=== PATIENT | female | born 1940 | race Caucasian/White ===

== ENCOUNTER 2018-02-06 01:58 | Inpatient (IN) | payer MEDICARE ==
[2018-02-06] MEDS ORDERED: fentaNYL Citrate/PF 2,000 MCG in Sodium Chloride 0.9% 60 ML IV SCH ×2 (02:15→06:00)
[2018-02-06 02:29] LABS: Bilirubin Negative (Negative); Blood, Urine Negative (Negative); Clarity CLEAR (Clear); Glucose, Urine (Dipstick) Negative (Negative); Leukocyte Negative (Negative); Nitrite Negative (Negative); Protein, Urine (Dipstick) Negative (Neg-Trace); Specific Gravity, Urine 1.013 (1.002-1.036); Urobilinogen 0.2 mg/dL (0.2-1.0); pH, Urine 6.5 (5.0-9.0)
[2018-02-06 02:40] LABS: Actual Bicarbonate (HCO3a) 27.3 mEq/L (22-26); Base Excess (BEa) 3.6 mEq/L (0 (+/-) 2.5); CO2 Tension 37.4 mmHg (35.0-45.0); O2 Tension (PaO2) 72.5 mmHg (80.0-100.0); pH, Arterial 7.48 (7.35-7.45)
[2018-02-06 02:41] LABS: Analyzer IN Cardio ER; Calcium, Ionized 1.1 mmol/L (1.12-1.30); Hematocrit-ABG 32.1 % (36.0-47.0); Hemoglobin (Hb) 10.3 g/dL (12.0-16.0); Puncture Site RRA
[2018-02-06 02:45] LABS: Amphetamine Not Detected (NotDetected); Barbiturates Screen Not Detected (NotDetected); Benzodiazepine Screen Not Detected (NotDetected); Cocaine Metabolite Screen Not Detected (NotDetected); Medtox Control Line Valid? VALID (VALID); Medtox Reader # READER 1; Methadone Not Detected (NotDetected); Methamphetamine Not Detected (NotDetected); Opiate Screen Not Detected (NotDetected); Oxycodone Screen Not Detected (NotDetected); Phencyclidine (PCP) Not Detected (NotDetected); THC/Cannabinoid Screen Not Detected (NotDetected); Tricyclic Screen Not Detected (NotDetected)
[2018-02-06 02:54] LABS: #Lymphocytes 0.3 thou/uL (1.20-3.40); #Neutrophils 8.9 thou/uL (1.40-6.50); %Lymphocytes 3.1 % (21.0-51.0); %Monocytes 0.2 % (0.0-10.0); %Neutrophils 96.7 % (42.0-75.0); Hemoglobin 10.5 g/dL (12.0-16.0); Mean Corpuscular HGB CONC 33.8 g/dL (32.0-36.0); Mean Corpuscular Hemoglobin 32.8 pg (27.0-31.0); Mean Corpuscular Volume 96.8 fl (81.0-99.0); Platelet Count 185 thou/uL (130-400); RBC Distribution Width 12.8 % (11.5-14.5); Red Blood Cell (RBC) Count 3.22 mill/uL (4.20-5.40); White Blood Cell (WBC) Count 9.2 thou/uL (4.8-10.8)
[2018-02-06 03:15] LABS: ALT (SGPT) 13 U/L (8-55); AST (SGOT) 23 U/L (5-34); Albumin 3.6 g/dL (3.4-4.8); Alkaline Phosphatase 57 U/L (40-150); Anion Gap 14 mmol/L (10-20); BUN (Urea Nitrogen) 29 mg/dL (9.8-20.1); Bilirubin, Total 1.2 mg/dL (0.2-1.2); Calc. Creatinine Clearance 0 mL/min (70-130); Calcium 8.7 mg/dL (7.8-10.44); Carbon Dioxide 27 mmol/L (23-31); Chloride 101 mmol/L (98-107); Estimated GFR-MDRD 53; Globulin 2.6 g/dL (2.4-3.5); Glucose 188 mg/dL (83-110); Potassium 3.8 mmol/L (3.5-5.1); Protein, Total 6.2 g/dL (6.0-8.3); Sodium 138 mmol/L (136-145)
[2018-02-06 05:31] LABS: Troponin I 0.126 ng/mL (< 0.028)
[2018-02-06] MEDS ORDERED: Lorazepam 2 MG/ML VIAL SLOW IVP PRN (06:00)
[2018-02-06] MEDS ORDERED: Ondansetron ODT 4 MG TAB SL PRN (06:00)
[2018-02-06] MEDS ORDERED: Ondansetron HCl/PF 4 MG/2 ML Vial IVP PRN (06:00)
[2018-02-06] MEDS ORDERED: Morphine 4 MG/ML VIAL SLOW IVP PRN (06:00)
[2018-02-06] MEDS ORDERED: DISCONTINUE PREVIOUS NARCOTIC PAIN MEDICATIONS AND BENZODIAZEPINES FS SCH (06:00)
[2018-02-06] MEDS ORDERED: Propofol BOLUS 1,000 MG/100 ML VIAL IV PRN (06:00)
[2018-02-06] MEDS ORDERED: Propofol 1,000 MG/100 ML VIAL IV PRN (06:00)
[2018-02-06] MEDS ORDERED: Sodium Chloride 0.9% 1,000 ML IV SCH (06:00)
[2018-02-06] MEDS ORDERED: Acetaminophen 325 MG TAB PO PRN (06:00)
[2018-02-06] MEDS ORDERED: Fentanyl BOLUS 250 ML IVPB PRN (06:00)
[2018-02-06] MEDS ORDERED: Bisacodyl 10 MG SUPP PR PRN (06:24)
[2018-02-06 06:34] VITALS: BMI 21.8
[2018-02-06 06:59] LABS: Lactic Acid 2.6 mmol/L (0.5-2.2)
--- NOTE | 2018-02-06 07:08 | HP ---
CHIEF COMPLAINT: Pulmonary edema. HISTORY OF PRESENT ILLNESS: This is a 77-year-old female who was initially seen in the ER in [place] . It appears that at that facility, she initially presented with shortness of breath and difficulty breathing was subsequently found to have flash pulmonary edema. She was emergently intubated to prot ect her airway secondary to acute hypoxic failure from the flash pulmonary edema. It appears in that emergency department she also got 80 mg of Lasix IV x1. The patient was subsequently transferred to our facility where she was found to be hypotensive on pro pofol and was therefore in the emergency department transitioned to p.r.n., fentanyl which appears to be providing adequate sedation which appears to be sufficient. The patient is currently intubated and sedated, unable to provide any further history or review of sy stems. PAST MEDICAL HISTORY: The patient herself is unable to provide, but from ER report she carries a his tory of hyperlipidemia. Of note, she does not appear to carry any known history of CHF or primary pu lmonary issues. Unclear what prior surgeries the patient may have had as she is unable to tell and t here is no family at bedside. I do not see any in the records that accompanied her. HOME MEDICATIONS: Pending verification. ALLERGIES: CRESTOR or ROSUVASTATIN. CURRENT MEDICATIONS: None that are known to us at this time. PAST MEDICAL HISTORY: Unclear. PHYSICAL EXAMINATION: GENERAL: The patient is intubated and sedated. ET tube grossly appears to be in the right position. She has a right-sided internal jugular central venous catheter in place. HEENT: Normocephalic, atraumatic. CARDIOVASCULAR: S1, S2. Pulses 2+ bilateral upper extremities, trace bilateral pitting pedal edema. RESPIRATORY: Coarse ventilator sounds throughout. No overt wheezes, rales or rhonchi. ABDOMEN: Positive bowel sounds, soft. LABORATORY DATA AND IMAGING: WBC 9.2, hemoglobin 10.5, hematocrit 31.1, platelets 185. Initial ER, ABG here demonstrates a pH of 7.48, pCO2 is 37, pO2 of 72. Sodium 136, potassium 3.8, chloride 101, bicarbonate 27, BUN 29, creatinine 1.01, glucose 1.88, lactic acid 2.6, calcium 8.7, total bilirubin 1.2, AST 23, ALT 13, alkaline phosphatase 57. Troponin 0.126, BNP 1029.4, total protein 6.2, albumi n 3.6. UA is bland. UDS is negative. ASSESSMENT AND PLAN: A 77-year-old female presenting with flash pulmonary edema. 1. Flash pulmonary edema with acute hypoxic respiratory failure. Unclear precipitant at this point in time. So far, the only clues includes the patient's elevated BNP and a mildly elevated troponin w hich could be secondary to a demand type pattern. Maintain ventilatory support. Consult Pulmonary C ritical Care for assistance. Check echocardiogram. Trend serial troponins and maintain on telemetry . Would recommend a repeat ABG as well and checking a repeat lactic acid to ensure that it has clear ed. We will need to attempt to obtain records from the patient's family, her PCP and/or her pharmacy . DIET: N.p.o. while the patient is intubated. She has a prolonged intubation to consider initiation of tube feeds. ACTIVITY: Bed rest while the patient is on ventilator support. Deep venous thrombosis prophylaxis, enoxaparin. Thank you for asking me to care for your patient. With any questions or concerns, contact me at [facility].
--- NOTE | 2018-02-06 07:55 | RAD ---
AP VIEW CHEST: Date: 02/06/18 HISTORY: Lung cancer. Cough. FINDINGS: AP view of chest demonstrates nasogastric and endotracheal tubes to be in place. EKG leads are seen o cleopatra the chest. Small bilateral pleural effusions seen. Pulmonary vascular congestion is seen. Small b ilateral pleural effusions seen. IMPRESSION: 1. Pulmonary vascular congestion, small bilateral pleural effusions. 2. Nasogastric and endotracheal tubes in good position. Unfortunately, comparison studies are not available from previous outside institution. POS: [facility]
--- NOTE | 2018-02-06 08:11 | RAD ---
PORTABLE AP CHEST: Date: 02/06/18 HISTORY: Patient on ventilator, intubated. Follow-up evaluation. COMPARISON: 02/06/18 at 0219 hours. FINDINGS: Endotracheal tube and nasogastric tubes are noted in place. There has been interval placement of a ri ght internal jugular vein central venous catheter with tip overlying the expected location of the mos t proximal SVC. There are patchy air space opacities seen at the right lung base with left pleural ef fusion and atelectasis. There is also increased density in the retrocardiac region of the left lung b ase which also could be related to superimposed pneumonia. Vascular calcification thoracic aorta. Pul monary vasculature is within normal limits. No other interval change. IMPRESSION: 1. Patchy air space opacity at the right lung base, as well as increased density in the retrocardiac region of the left lung base. Findings could be related to bibasilar pneumonia and atypical pneumoni a is a possibility. 2. Left pleural effusion and atelectasis. 3. Lines and tubes in place as described above. No pneumothorax is seen. POS: OFF
[2018-02-06] MEDS ORDERED: Famotidine/PF 20 mg/2ml Vial SLOW IVP SCH (09:00)
[2018-02-06 09:03] LABS: Troponin I 0.168 ng/mL (< 0.028)
[2018-02-06] MEDS: Enoxaparin Sodium 30 MG/0.3 ML SYRINGE SC SCH (09:49)
[2018-02-06] MEDS ORDERED: predniSONE 20 MG TAB PO SCH (11:15)
--- NOTE | 2018-02-06 12:45 | CON ---
DATE OF CONSULTATION: 02/06/2018 SERVICE: Pulmonary Medicine. REASON FOR CONSULTATION: Intubated patient. HISTORY OF PRESENT ILLNESS: The patient is a 77-year-old white female with past medical history significant for nothing that we are aware of other than some hypertension and stage IV lung cancer. She has been in remission and doing quite well from that perspective for a long period of time. She is status post 1 chemotherapeutic agent. A second list is on board in addition to Keytruda. She was in her usual state of health until about a couple of weeks prior to admission when she started having dyspnea on exertion and fatigue. She had increasing weakness. She had orthopnea. On the night of presentation, she woke up acutely short of breath in the middle of the night. Apparently, she has had a couple of these episodes previously, but they were quite a severe. In the Emergency Department, there are findings consistent with volume overload. She was given a dose of Lasix and intubated. She was initiated on propofol. She was initially hypertensive, but became hypotensive with these interventions. The propofol was discontinued and she was put on fentanyl. She was subsequently tucked into ICU. Overnight, she has been weaned down to 21% FiO2 and a PEEP of 5. She is awake and comfortable on mechanical ventilation. There has no specific complaints presently. PHYSICAL EXAMINATION: VITAL SIGNS: Afebrile, pulse 87, blood pressure 125/44, respirations 19, saturation 93% on 21% FiO2 and PEEP of 5. GENERAL: The patient is awake and alert. She is in no apparent distress. HEENT: Normocephalic, atraumatic. Sclerae are white, conjunctivae pink. Oral mucosa is moist without lesions. LUNGS: Slightly prolonged expiratory phase with minimal wheezing and dependent crackles present. Otherwise, there is fairly good air entry. I do not appreciate rhonchi. HEART: Normal rate and regular. ABDOMEN: Soft, nontender and nondistended. Bowel sounds are positive. MUSCULOSKELETAL: No cyanosis or clubbing. There is trace pitting in the bilateral lower extremities. NEUROLOGIC: Grossly nonfocal. PAST MEDICAL HISTORY: 1. Dyslipidemia. 2. Hypertension (not on medication). 3. Stage IV lung cancer. PAST SURGICAL HISTORY: Unknown. ALLERGIES: CRESTOR. MEDICATIONS: List of her inpatient medications were heavily modified. They were reviewed. FAMILY HISTORY: Noncontributory. SOCIAL HISTORY: Negative for significant alcohol, tobacco or illicit drug use based on patient's recollection. She is currently under therapy at [facility] for her stage IV lung cancer. She is a lifelong nonsmoker. REVIEW OF SYSTEMS: This cannot be obtained because the patient is currently intubated and under the influence of some sedation. LABORATORY DATA: WBC 9.2, hemoglobin 10.5, platelets 185,000. Neutrophil count is 97%. PH 7.48, pCO2 of 37, pO2 of 72. Basic metabolic profile and liver function studies are unremarkable. Creatinine 1.01. BNP 1000. Troponin is up trending to 0.168. Lactate is stable at 2.6. Urine drug screen and urinalysis are all unremarkable. IMAGING: Chest x-ray demonstrates right-sided IJ is in decent position. The endotracheal tube is roughly 4 cm above the level of the ryann. There is a left-sided pleural parenchymal opacification, possibly consistent with atelectasis and/or pleural effusion. There is subtle changes of increasing interstitial and alveolar markings, particularly in the bibasilar region. Pulmonary vascular congestion is mild. ASSESSMENT: 1. Acute hypoxic respiratory failure, resolved. 2. Acute heart failure, suspected. 3. Pleural effusion, left. 4. Acute bronchitis. 5. Hypertension. 6. Adenocarcinoma of the lung, stage 4, currently on chemotherapy and immunotherapy (Keytruda). DISCUSSION AND PLAN: We are going to put her on a spontaneous breathing trial when she is fully awake from her sedation. If she meets criteria, extubation will be considered. Pulmonary or Critical Care will continue to follow very closely. Echocardiogram will be added to our interventions that are currently scheduled. Multiple medications were discontinued from her medical record. We will continue to diurese gently. Critical care time: 30 minutes. MTDD
[2018-02-07 04:49] LABS: Anion Gap 9 mmol/L (10-20); BUN (Urea Nitrogen) 32 mg/dL (9.8-20.1); Calc. Creatinine Clearance 46 mL/min (70-130); Calcium 8.6 mg/dL (7.8-10.44); Carbon Dioxide 31 mmol/L (23-31); Chloride 104 mmol/L (98-107); Estimated GFR-MDRD 58; Glucose 131 mg/dL (83-110); Potassium 4.3 mmol/L (3.5-5.1); Sodium 140 mmol/L (136-145)
[2018-02-07 04:55] LABS: Troponin I 0.089 ng/mL (< 0.028)
[2018-02-07 05:10] LABS: #Lymphocytes 0.4 thou/uL (1.20-3.40); #Neutrophils 5.2 thou/uL (1.40-6.50); %Basophils 0.2 % (0.0-1.0); %Monocytes 0.2 % (0.0-10.0); %Neutrophils 92.5 % (42.0-75.0); Hemoglobin 9.2 g/dL (12.0-16.0); Mean Corpuscular HGB CONC 34.2 g/dL (32.0-36.0); Mean Corpuscular Hemoglobin 33.5 pg (27.0-31.0); Mean Corpuscular Volume 97.9 fl (81.0-99.0); Mean Platelet Volume 7.5 fL (7.4-10.4); PLT Morphology Comment Appears Adequate; Platelet Count 117 thou/uL (130-400); RBC Distribution Width 12.5 % (11.5-14.5); Red Blood Cell (RBC) Count 2.74 mill/uL (4.20-5.40); White Blood Cell (WBC) Count 5.7 thou/uL (4.8-10.8)
[2018-02-07] MEDS: Enoxaparin Sodium 30 MG/0.3 ML SYRINGE SC SCH (07:48)
[2018-02-07] MEDS: Furosemide 40 MG TAB PO SCH (07:48)
--- NOTE | 2018-02-07 17:27 | PRG ---
DATE OF SERVICE: 02/07/2018 SERVICE: Pulmonary Medicine INTERVAL HISTORY: The patient is doing fine from a respiratory standpoint. She tolerated extubation quite well yesterday. There were no events overnight. She is on room air and breathing comfortably . PHYSICAL EXAMINATION: VITAL SIGNS: Afebrile, pulse 92, blood pressure 108/53, respirations 17, saturation 95% on room air. GENERAL: The patient is awake, alert, no apparent distress. LUNGS: Decent air entry. Dependent crackles are minimal. No prolonged expiratory phase or wheezing is appreciated. HEART: Normal rate, regular. ABDOMEN: Soft, nontender, nondistended. Bowel sounds are positive. MUSCULOSKELETAL: No cyanosis or clubbing. There is trace to 1+ pitting in the bilateral lower extre mities. NEUROLOGIC: Grossly nonfocal. LABORATORY DATA: WBC is 5.7, hemoglobin 9.2, platelets 117,000. Creatinine 0.94. BUN 32. Basic me tabolic profiles were otherwise unremarkable. Troponin is down trending to 0.89. BNP 1000. Urinaly sis and urine drug screen unremarkable. IMAGING: Echocardiogram demonstrates 30%-35% ejection fraction. There is hypokinesis involving the septum, anterolateral wall of the left ventricle. Flow reversal suggestive of diastolic dysfunction. Mild mitral regurgitation is present. There is moderate aortic regurgitation noted. ASSESSMENT: 1. Acute hypoxic respiratory failure, resolved. 2. Acute systolic and diastolic heart failure. 3. Pleural effusion on the left. 4. Acute bronchitis. 5. Hypertension. 6. Adenocarcinoma of the lung, stage 4, currently on chemotherapy and immunotherapy with Keytruda. DISCUSSION AND PLAN: At this point, the patient can transition to the floor. We will continue to di urese as tolerated. Villasenor catheter will be removed. Cardiology consultation will be placed for new onset heart failure. Pulmonary Critical Care will continue to follow along for the time being. I wi ll repeat chest x-ray tomorrow morning. Hopefully, the effusion will be improved. If it is, no need for thoracentesis.
--- NOTE | 2018-02-07 18:43 | PDOC.PN ---
- Subjective Encounter Start Date: 02/07/18 Encounter Start Time: 10:00 Pt seen for followup re: pulmonary edema. Denies chest pain. Feels better. - Objective Resuscitation Status: Resuscitation Status FULL:Full Resuscitation MAR Reviewed: Yes Vital Signs & Weight: Vital Signs (12 hours) Temp Pulse Resp BP Pulse Ox 02/07/18 17:00 98.0 F 113 H 18 160/73 H 94 L 02/07/18 12:09 104 H 20 99 02/07/18 12:00 97.9 F 02/07/18 08:00 99.1 F 02/07/18 07:49 99.1 F 99 21 H 94 L 02/07/18 07:27 99 02/07/18 07:25 77 17 99 Weight Weight 126 lb 15.78 oz Most Recent Monitor Data Heart Rate from ECG 92 NIBP 108/53 NIBP BP-Mean 65 Respiration from ECG 17 SpO2 95 I&O: 02/06/18 02/07/18 02/08/18 06:59 06:59 06:59 Intake Total 769 846 Output Total 200 1070 1310 Balance -200 -301 -464 Result Diagrams: 02/07/18 04:17 02/07/18 04:17 EKG Reviewed by me: Yes (Tele: NSR) Phys Exam - Physical Examination Constitutional: NAD HEENT: moist MMs, sclera anicteric, oral pharynx no lesions, 2+ tonsils Neck: no nodes, no JVD, supple, full ROM Respiratory: no wheezing, no rhonchi [place] crackles Cardiovascular: RRR, no rub S1, S2 Gastrointestinal: soft, non-tender, no distention, positive bowel sounds Neurological: moves all 4 limbs Psychiatric: normal affect, A&O x 3 Dx/Plan (1) Acute pulmonary edema Code(s): J81.0 - ACUTE PULMONARY EDEMA Status: Acute Comment: Improving. Continue diuretics. (2) Acute respiratory failure with hypoxia Code(s): J96.01 - ACUTE RESPIRATORY FAILURE WITH HYPOXIA Status: Acute Comment: s/p extubation (3) Acute combined systolic and diastolic heart failure Code(s): I50.41 - ACUTE COMBINED SYSTOLIC AND DIASTOLIC (CONGESTIVE) HRT FAIL Status: Acute Comment: ACC AHA Class C. Cardiology consulted (4) HTN (hypertension) Code(s): I10 - ESSENTIAL (PRIMARY) HYPERTENSION Status: Chronic Comment: Stable, BP controlled (5) Lung cancer Code(s): C34.90 - MALIGNANT NEOPLASM OF UNSP PART OF UNSP BRONCHUS OR LUNG Status: Chronic Comment: currently receiving treatments - Plan * . Review of Systems - Medications/Allergies Allergies/Adverse Reactions: Allergies Allergy/AdvReac Type Severity Reaction Status Date / Time rosuvastatin [From Crestor] Allergy Verified 02/06/18 09:40 Medications: Current Medications Albuterol/Ipratropium (Duoneb) 3 ml NEB [id number] [facility] Last Admin: 02/07/18 12:09 Dose: 3 ml Bisacodyl (Dulcolax) 10 mg WA Q24H PRN PRN Reason: Constipation Enoxaparin Sodium (Lovenox) 30 mg SC 0900 [facility] Last Admin: 02/07/18 07:48 Dose: 30 mg Furosemide (Lasix) 40 mg PO DAILY-AC [facility] Last Admin: 02/07/18 07:48 Dose: 40 mg
[2018-02-08 06:02] LABS: #Lymphocytes 0.7 thou/uL (1.20-3.40); #Monocytes 0.1 thou/uL (0.11-0.59); #Neutrophils 2.3 thou/uL (1.40-6.50); %Basophils 0.2 % (0.0-1.0); %Eosinophils 0.8 % (0.0-10.0); %Lymphocytes 22.8 % (21.0-51.0); %Monocytes 2.5 % (0.0-10.0); %Neutrophils 73.6 % (42.0-75.0); Hemoglobin 9.2 g/dL (12.0-16.0); Mean Corpuscular HGB CONC 33.5 g/dL (32.0-36.0); Mean Corpuscular Hemoglobin 32.8 pg (27.0-31.0); Mean Corpuscular Volume 97.8 fl (81.0-99.0); Mean Platelet Volume 7.4 fL (7.4-10.4); Platelet Count 98 thou/uL (130-400); RBC Distribution Width 12.6 % (11.5-14.5); Red Blood Cell (RBC) Count 2.82 mill/uL (4.20-5.40); White Blood Cell (WBC) Count 3.1 thou/uL (4.8-10.8)
[2018-02-08 06:07] LABS: Anion Gap 11 mmol/L (10-20); BUN (Urea Nitrogen) 33 mg/dL (9.8-20.1); Calc. Creatinine Clearance 54 mL/min (70-130); Calcium 8.8 mg/dL (7.8-10.44); Carbon Dioxide 32 mmol/L (23-31); Chloride 101 mmol/L (98-107); Estimated GFR-MDRD 71; Glucose 100 mg/dL (83-110); Potassium 3.6 mmol/L (3.5-5.1); Sodium 140 mmol/L (136-145)
--- NOTE | 2018-02-08 08:34 | RAD ---
PA AND LATERAL OF THE CHEST: INDICATION: Followup effusion. COMPARISON: Prior exam dated 02/06/18. FINDINGS: Since the comparison examination, the patient has been extubated. RIGHT IJ central venous catheter i s stable. Gastric catheter has been removed. There is perceived elevation of the left hemidiaphragm which is new from the comparison examination, this may be related to left lower lobe volume loss. Th ere is persistent small left pleural effusion. There is improvement in the infrahilar airspace opaci ties most suspicious for resolved edema. Tiny right pleural effusion remains. This is superimposed on chronic lung disease likely related to fibrosis and bronchiectasis. No pneumothorax is evident. IMPRESSION: 1. New elevation of the left hemidiaphragm may reflect a component of left lower lobe volume loss. Recommend further evaluation with a CT of the thorax for additional characterization. 2. Improved central edema pattern seen from the comparison examination with interval extubation and removal of the gastric catheter. 3. Stable right internal jugular central venous catheter. POS: [facility]
[2018-02-08] MEDS: Furosemide 40 MG TAB PO SCH (08:39)
[2018-02-08] MEDS ORDERED: Enoxaparin Sodium 40 MG/0.4 ML SYRINGE SC SCH (09:00)
[2018-02-08] MEDS ORDERED: Lisinopril 5 MG TAB PO SCH (11:00)
[2018-02-08] MEDS ORDERED: Spironolactone 25 MG TAB PO SCH (11:00)
[2018-02-08] MEDS ORDERED: guaiFENesin ER 600 MG TAB PO SCH ×2 (11:01→11:15)
[2018-02-08] MEDS ORDERED: Amoxicillin/Potassium Clav 875 MG TAB PO SCH ×2 (11:15)
--- NOTE | 2018-02-08 14:41 | PDOC.PN ---
- Subjective Encounter Start Date: 02/08/18 Encounter Start Time: 14:39 Subjective: feels a little better w breathing but still w productiv cough - Objective Resuscitation Status: Resuscitation Status FULL:Full Resuscitation MAR Reviewed: Yes Vital Signs & Weight: Vital Signs (12 hours) Temp Pulse Pulse Pulse Resp BP BP 02/08/18 13:50 97 20 02/08/18 11:05 114 H 02/08/18 11:02 98.3 F 114 H 18 02/08/18 08:55 119 H 127 H 138/66 153/74 H 02/08/18 08:38 98.9 F 107 H 16 02/08/18 07:07 89 16 02/08/18 04:00 97.8 F 89 15 BP BP Pulse Ox Pulse Ox Pulse Ox 02/08/18 13:50 94 L 02/08/18 11:05 02/08/18 11:02 144/73 H 94 L 02/08/18 08:55 89 L 90 L 02/08/18 08:38 139/69 94 L 02/08/18 07:07 94 L 02/08/18 04:00 128/60 100 Weight Weight 126 lb 15.78 oz Most Recent Monitor Data Heart Rate from ECG 92 NIBP 108/53 NIBP BP-Mean 65 Respiration from ECG 17 SpO2 95 I&O: 02/07/18 02/08/18 02/09/18 06:59 06:59 06:59 Intake Total 769 846 Output Total 1070 1435 Balance -301 -589 Result Diagrams: 02/08/18 05:42 02/08/18 05:42 Additional Labs: Laboratory Tests 02/06/18 02/06/18 02/06/18 02:40 02:40 06:20 Lactic Acid 2.6 H 2.6 H Troponin I 0.126 H 02/06/18 02/07/18 08:31 04:17 Lactic Acid Troponin I 0.168 H 0.089 H labs reviewed Radiology Reviewed by me: Yes (ECHO-EF 30-35%) Phys Exam - Physical Examination Constitutional: NAD thin HEENT: PERRLA, moist MMs, sclera anicteric, oral pharynx no lesions Neck: no nodes, no JVD, supple, full ROM Respiratory: no wheezing, no rales, no rhonchi, clear to auscultation bilateral Cardiovascular: RRR, no significant murmur, no rub Gastrointestinal: soft, non-tender, no distention, positive bowel sounds Musculoskeletal: no edema, pulses present Neurological: non-focal, normal sensation, moves all 4 limbs Psychiatric: normal affect, A&O x 3 Skin: no rash Dx/Plan (1) Acute and chronic respiratory failure with hypoxia Code(s): J96.21 - ACUTE AND CHRONIC RESPIRATORY FAILURE WITH HYPOXIA Status: Acute (2) Acute pulmonary edema Code(s): J81.0 - ACUTE PULMONARY EDEMA Status: Acute Comment: Improving. Continue diuretics. (3) Thrombocytopenia Code(s): D69.6 - THROMBOCYTOPENIA, UNSPECIFIED Status: Acute (4) Cardiomyopathy Code(s): I42.9 - CARDIOMYOPATHY, UNSPECIFIED Status: Chronic Qualifiers: Cardiomyopathy type: unspecified Qualified Code(s): I42.9 - Cardiomyopathy , unspecified Comment: Suspect ChemoRx induced Vs CAD (5) HTN (hypertension) Code(s): I10 - ESSENTIAL (PRIMARY) HYPERTENSION Status: Chronic Comment: Stable, BP controlled (6) Lung cancer Code(s): C34.90 - MALIGNANT NEOPLASM OF UNSP PART OF UNSP BRONCHUS OR LUNG Status: Chronic Comment: currently receiving treatments - Plan PT/OT, respiratory therapy, incentive spirometry, out of bed/ambulate, DVT proph w/SCDs start on BB,MAKENZIE-I,aldactone for new diagnosis of cardiomyopathy -: ? ChemoRx induced.Oncology consulted -: cardiology following.may need cath to r/o CAD as a cause -: cont supportive care. IV lasix -: hold lovenox as platelet count lower today.monitor * .Add empiric ABx for productive cough.add mucinex.cont nebs,dulera * cont O2 prn * am labs Review of Systems - Review of Systems Constitutional: weakness, malaise. negative: fever, chills, sweats, other Respiratory: Cough, SOB with Excertion. negative: Dry, Shortness of Breath, Hemoptysis, Pleuritic Pain, Sputum, Wheezing Cardiovascular: negative: chest pain, palpitations, orthopnea, paroxysmal nocturnal dyspnea, edema, light headedness, other Gastrointestinal: negative: Nausea, Vomiting, Abdominal Pain, Diarrhea, Constipation, Melena, Hematochezia, Other Genitourinary: negative: Dysuria, Frequency, Incontinence, Hematuria, Retention , Other Musculoskeletal: negative: Neck Pain, Shoulder Pain, Arm Pain, Back Pain, Hand Pain, Leg Pain, Foot Pain, Other Skin: negative: Rash, Lesions, Shankar, Bruising, Other Neurological: negative: Weakness, Numbness, Incoordination, Change in Speech, Confusion, Seizures, Other - Medications/Allergies Allergies/Adverse Reactions: Allergies Allergy/AdvReac Type Severity Reaction Status Date / Time rosuvastatin [From Crestor] Allergy Verified 02/06/18 09:40 Medications: Current Medications Albuterol/Ipratropium (Duoneb) 3 ml NEB [id number] [facility] Last Admin: 02/08/18 13:50 Dose: 3 ml Amoxicillin/Clavulanate Potassium (Augmentin) 875 mg PO Q12HR [facility] Bisacodyl (Dulcolax) 10 mg [place] Q24H PRN PRN Reason: Constipation Carvedilol (Coreg) 3.125 mg PO BID-[facility] Furosemide (Lasix) 40 mg PO DAILY-AC [facility] Last Admin: 02/08/18 08:39 Dose: 40 mg Guaifenesin (Mucinex) 1,200 mg PO Q12HR [facility] Iron/Minerals/Multivitamins (Theragran M) 1 tab PO DAILY [facility] Lisinopril (Zestril) 2.5 mg PO BID [facility] Magnesium Oxide (Magnesium Oxide) 200 mg PO BID [facility] Spironolactone (Aldactone) 25 mg PO QAM-[facility]
--- NOTE | 2018-02-08 15:01 | CON ---
DATE OF CONSULTATION: 02/08/2018 HISTORY OF PRESENT ILLNESS: The patient is a 77-year-old woman who presents with increasing dyspnea. The patient has no previous cardiac history. She has a history of lung carcinoma. She has been un dergoing chemotherapy for the past year. The patient was in her usual state of health, in the past f ew days she started feeling progressively more short of breath. The patient presented to the emergen cy room and was emergently intubated. The patient subsequently was diuresed. The patient at this [facility] is breathing comfortably. She denies having any history of chest discomfort. The patient denies having any palpitations. PAST MEDICAL HISTORY: 1. Lung carcinoma. 2. Hypertension. PAST SURGICAL HISTORY: Umbilical hernia surgery. SOCIAL HISTORY: Nonsmoker. FAMILY HISTORY: No strong family history of heart disease. ALLERGIES: She is allergic to CRESTOR. MEDICATIONS ON ADMISSION: She took magnesium 200 daily. PHYSICAL EXAMINATION: GENERAL: This is a thin woman in no acute distress. Blood pressure 139/69. NECK: Showed elevated jugular venous distention. LUNGS: Have decreased breath sounds throughout the left lung field with decreased breath sounds as w ell in the right lung field. HEART: Regular rate and rhythm, normal S1, S2, tachycardic. ABDOMEN: Nondistended. EXTREMITIES: Showed trace edema. LABORATORY RESULTS: Her sodium is 140, potassium 3.6, chloride 101, bicarbonate 32, BUN 33, creatini ne is 0.79, troponin 0.089. BNP was 1029. Her white blood cell count was 3.1, hemoglobin 9.2, hemat ocrit 27.6. Her platelets are 98. Her EKG revealed normal sinus rhythm with left bundle branch bloc k. Her chest x-ray revealed bilateral pleural effusions with an elevated left hemidiaphragm. Echocardio gram revealed her to have moderate decreased left ventricular ejection fraction 30-35%. Anterior wal l was hypokinetic. IMPRESSION: 1. Congestive heart failure. 2. Cardiomyopathy. 3. History of lung carcinoma. 4. Hypertension. PLAN: This patient presents with new onset congestive heart failure. She has a lung carcinoma stage IV. We will start the patient on MAKENZIE inhibitor therapy and low dose beta papi therapy. We will a dd spironolactone for class IV congestive heart failure. We will obtain oncology evaluation to evalu ate the patient's prognosis. We will follow this patient with you through her hospitalization.
[2018-02-08] MEDS: Carvedilol 3.125 MG TAB PO SCH (16:40)
--- NOTE | 2018-02-08 18:37 | CON ---
DATE OF CONSULTATION: 02/08/2018 REASON FOR CONSULTATION: Lung cancer. HISTORY OF PRESENT ILLNESS: Ms. Lee is a 77-year-old female with a stage IV lung cancer on immunotherapy at [facility] who presented to the emergency room in [place] with shortness of breath. She was found to have flash pulmonary edema, was intubated and transferred to this facility. She has been extubated and is currently doing well. An echocardiogram performed showed an ejection fraction of 30%-35%. Patient was diagnosed with lung cancer in 2016 and was treated with seminole- based chemotherapy. She was switched to immunotherapy and has been on Keytruda and Alimta for over 1 year. She receives chemotherapy every 21 days, last cycle was February 01. She has been doing well until recently when she began having a cough. She has a recent CT scan at [facility]. She was actually due to see a core driller at [facility] today for further evaluation of a questionable area seen on scan. Her oncologist, Dr. Cagle, was concerned for either infection or progression of her disease. The plan was to see the core driller and have a biopsy via bronchoscopy. She states she has been in her usual state of health until she had this cough a few days ago. Denies any chest pain, no shortness of breath at this time. No weight loss. No abdominal pain, diarrhea, constipation. She does complain of swelling in her extremities. PAST MEDICAL HISTORY: 1. Stage IV lung cancer. 2. Hyperlipidemia. 3. Hypertension. PAST SURGICAL HISTORY: Lung biopsy. ALLERGIES: CRESTOR. CURRENT MEDICATIONS: 1. Augmentin 875 mg daily. 2. Dulcolax daily. 3. Coreg 3.125 mg b.i.d. 4. Lovenox 40 mg subcu daily. 5. Lasix 40 mg daily. 6. Mucinex daily. 7. Theragran daily. 8. Zestril 2.5 mg b.i.d. 9. Magnesium oxide daily. 10. Aldactone 25 mg daily. FAMILY HISTORY: Noncontributory. SOCIAL HISTORY: Nonsmoker. No alcohol or illicit drug use. Lives in [place]. REVIEW OF SYSTEMS: Twelve point review of system is negative except for noted in HPI. PHYSICAL EXAMINATION: VITAL SIGNS: Temperature is 98.3, pulse is 114, respiratory rate 18, BP is 144/ 73. She is 94% on room air. GENERAL: Well-developed, well-nourished female, in no acute distress. HEENT: Normocephalic, atraumatic. Pupils equal and reactive to light. NECK: Supple. CARDIOVASCULAR: Regular rate and rhythm. She has 2/6 murmur. LUNGS: Diminished in the left base. ABDOMEN: Soft, nontender, bowel sounds are positive. EXTREMITIES: No clubbing, cyanosis or edema. SKIN: No rash. HEMATOLOGIC: No petechia or purpura. NEUROLOGIC: Nonfocal. PSYCHIATRIC: The patient is alert and oriented. PERTINENT LABORATORY AND X-RAYS: Current WBC is 3.1, hemoglobin 9.2, hematocrit 27.6, platelet count is 98,000, 74% neutrophils, 23% lymphocytes. Sodium is 140, potassium 3.6, chloride 101, CO2 of 32, BUN is 33, creatinine 0.79. Lactic acid is 2.6, calcium 8.8, troponin 0.089, total bilirubin is 1.2, AST is 23, ALT 13, alkaline phosphatase is 57, total protein is 6.2, albumin 3.6 , globulin 2.1. Urine is negative for bacteria. Chest x-ray shows a left hemidiaphragm elevation with improved pulmonary edema. IMPRESSION: 1. Stage IV lung cancer on immunotherapy at [facility]. 2. New onset of congestive heart failure. 3. Acute respiratory failure, resolved. 4. Left pleural effusion, small. DISCUSSION: I spoke with Dr. Cagle's Nurse Practitioner at [facility]. She has never received a cardiotoxic drug for treatment. Patient appears to have been in remission with immunotherapy until recently when she had this area on her lung that was being to evaluated by Pulmonary this week in [place]. She states that she has seen Dr. Michael Osorio in the past and was told she was "missing a bundle" but required no treatment. We would recommend maximizing her heart function and follow-up with her Oncologist as scheduled in 2 weeks. Thank you for the consult. LETTY
[2018-02-08] MEDS: Lisinopril 5 MG TAB PO SCH (20:38)
[2018-02-08] MEDS: Amoxicillin/Potassium Clav 875 MG TAB PO SCH (20:38)
[2018-02-08] MEDS: guaiFENesin ER 600 MG TAB PO SCH (20:38)
[2018-02-08] MEDS: Magnesium Oxide 400 MG TAB PO SCH (20:39)
--- NOTE | 2018-02-09 01:49 | PRG ---
DATE OF SERVICE: 02/08/2018 SERVICE: Pulmonary Medicine. INTERVAL HISTORY: The patient is doing great from a respiratory standpoint. She is on room air. She is breathing comfortably. She denies any chest pain, nausea, vomiting, fevers, or chills. Otherwise, there has been no interval change to her condition. Cardiology saw her. They are considering some more advanced diagnostic interventions. They are looking to see whether or not her expected mortality is greater than or less than 5 years. Because all the records were at [facility], we really do not know what that answer is. For that reason, Oncology consultation was placed. PHYSICAL EXAMINATION: VITAL SIGNS: Afebrile, pulse 99, blood pressure 121/65, respirations 16, saturation 93% on room air. GENERAL: The patient is awake, alert, in no apparent distress. LUNGS: Decent air entry. There is no prolonged expiratory phase, wheezing, rhonchi or crackles. HEART: Normal rate, regular. ABDOMEN: Soft, nontender, nondistended. Bowel sounds are positive. MUSCULOSKELETAL: No cyanosis or clubbing. There is trace pitting in the bilateral lower extremities. NEUROLOGIC: Grossly nonfocal. LABORATORY DATA: WBC 3.1, hemoglobin 9.2, platelets 98,000, which continues to trend downward. Basic metabolic profile is essentially unremarkable. Creatinine is down trending to 0.79. Troponin has improved to 0.089. Urinalysis and urine drug screen are unremarkable. ASSESSMENT: 1. Acute hypoxic respiratory failure, resolved. 2. Acute systolic and diastolic heart failure. 3. Pleural effusion on the left, improved. 4. Atelectasis of the left lower lobe, new onset. 5. Acute bronchitis. 6. Hypertension. 7. Adenocarcinoma of the lung, stage 4, currently on chemotherapy with one drug and a separate immunotherapy agent (Keytruda) based on patient's recollection. DISCUSSION AND PLAN: The patient has recently had a little atelectasis of the left lower lobe was not previously there. It appears that the pleural effusions are resolving. As such, no advanced diagnostic interventions are recommended at this time. I will switch her DuoNebs over to EzPAP. She will need a chest x-ray in 2-4 weeks in the outpatient setting. If the volume loss on the left persist, repeat CT scan of the chest will need to be done in preparation for a bronchoscopy. I will continue to follow intermittently during the hospital stay, but if she is still here on Monday, I may consider getting a repeat chest x-ray at that time. LETTY
[2018-02-09 06:01] LABS: #Lymphocytes 0.6 thou/uL (1.20-3.40); #Monocytes 0.2 thou/uL (0.11-0.59); #Neutrophils 0.8 thou/uL (1.40-6.50); %Basophils 0.1 % (0.0-1.0); %Eosinophils 1.7 % (0.0-10.0); %Lymphocytes 36.4 % (21.0-51.0); %Monocytes 13.3 % (0.0-10.0); %Neutrophils 48.4 % (42.0-75.0); Hemoglobin 9.5 g/dL (12.0-16.0); Mean Corpuscular HGB CONC 33.4 g/dL (32.0-36.0); Mean Corpuscular Hemoglobin 32.4 pg (27.0-31.0); Mean Corpuscular Volume 97.3 fl (81.0-99.0); Mean Platelet Volume 7.6 fL (7.4-10.4); Platelet Count 84 thou/uL (130-400); RBC Distribution Width 12.3 % (11.5-14.5); Red Blood Cell (RBC) Count 2.91 mill/uL (4.20-5.40); White Blood Cell (WBC) Count 1.6 thou/uL (4.8-10.8)
[2018-02-09 06:07] LABS: Anion Gap 7 mmol/L (10-20); BUN (Urea Nitrogen) 34 mg/dL (9.8-20.1); Calc. Creatinine Clearance 50 mL/min (70-130); Calcium 8.9 mg/dL (7.8-10.44); Carbon Dioxide 35 mmol/L (23-31); Chloride 98 mmol/L (98-107); Estimated GFR-MDRD 65; Glucose 94 mg/dL (83-110); Potassium 3.4 mmol/L (3.5-5.1); Sodium 137 mmol/L (136-145)
[2018-02-09] MEDS ORDERED: Regadenoson 0.4 MG/5 ML SYRINGE ONE (10:10)
[2018-02-09] MEDS: guaiFENesin ER 600 MG TAB PO SCH ×2 (10:58→20:46)
[2018-02-09] MEDS: Magnesium Oxide 400 MG TAB PO SCH ×2 (10:59→20:47)
[2018-02-09] MEDS: Carvedilol 3.125 MG TAB PO SCH ×2 (10:59→17:02)
[2018-02-09] MEDS: Multivitamin W/ Minerals 1 TAB PO SCH (10:59)
[2018-02-09] MEDS: Amoxicillin/Potassium Clav 875 MG TAB PO SCH (10:59)
[2018-02-09] MEDS: Furosemide 40 MG TAB PO SCH (10:59)
[2018-02-09] MEDS: Spironolactone 25 MG TAB PO SCH (11:00)
[2018-02-09] MEDS: Lisinopril 5 MG TAB PO SCH ×2 (11:00→20:46)
--- NOTE | 2018-02-09 13:10 | STRESS ---
Acquisition Time: 2018-02-09 09:31:28 Total Exercise Time: 00:01:00 Test Indications: CHEST PAIN Medications: Protocol: LEXISCAN Max HR: 116 BPM 81% of Pred: 143 BPM Max BP: 132/072 mmHG Max Work Load: 1.0 METS RESTING ECG: NORMAL SINUS RHYTHM AT 94 BPM WITH COMPLETE LEFT BUNDLE BRANCH BLOCK SYMPTOMS: NAUSEA NORMAL BP RESPONSE ECTOPY: NONE ECG STRESS: NO SIGNIFICANT CHANGES INTERPRETATION: INDETERMINATE ECG/AWAIT NUCLEAR IMAGES FOR DEFINITIVE DIAGNOSIS Confirmed by SAMANTHA GOMEZ ([id number]) on 02/09/2018 1:09:34 PM Referred By: MD Elda CLINE Confirmed By:SAMANTHA GOMEZ
--- NOTE | 2018-02-09 13:11 | NM ---
NUCLEAR MEDICINE CARDIAC STRESS TEST WITH EJECTION FRACTION: HISTORY: CHF. Hypertension. Chest pain. COMPARISON: None. TECHNIQUE: Stress and rest performed after the intravenous administration of 33 and 10.2 millicuries of techneti um 99m sestamibi (respectively). There is nonreversible ischemia of the left ventricular apex. There is also global hypokinesis. The calculated ejection fraction is 27%. IMPRESSION: 1. Scarred left ventricular apex with global hypokinesis and abnormal low ejection fraction of 27%. 2. No reversible ischemia. POS: NEEL
[2018-02-09] MEDS ORDERED: predniSONE 20 MG TAB PO SCH (13:30)
[2018-02-09] MEDS: Potassium Chloride 20 MEQ TAB PO SCH ×2 (14:17→17:02)
--- NOTE | 2018-02-09 14:29 | PDOC.PN ---
- Subjective Encounter Start Date: 02/09/18 Encounter Start Time: 14:27 Subjective: feels good. no new complaints.no chest pain/SOB - Objective Resuscitation Status: Resuscitation Status FULL:Full Resuscitation MAR Reviewed: Yes Vital Signs & Weight: Vital Signs (12 hours) Temp Pulse Resp BP Pulse Ox 02/09/18 13:57 76 12 02/09/18 11:00 95 02/09/18 10:56 97.4 F L 95 16 112/54 L 96 02/09/18 07:41 92 L 02/09/18 07:40 80 12 02/09/18 07:00 98.2 F 91 16 118/56 L 92 L 02/09/18 04:00 99.2 F 83 15 102/53 L 95 Weight Weight 126 lb 15.78 oz Most Recent Monitor Data Heart Rate from ECG 92 NIBP 108/53 NIBP BP-Mean 65 Respiration from ECG 17 SpO2 95 I&O: 02/08/18 02/09/18 02/10/18 06:59 06:59 06:59 Intake Total 846 Output Total 1435 Balance -589 Result Diagrams: 02/09/18 05:37 02/09/18 05:37 Additional Labs: labs reviewed Radiology Reviewed by me: Yes (NM stress test-EF 25%.apical scarring) Phys Exam - Physical Examination Constitutional: NAD HEENT: PERRLA, moist MMs, sclera anicteric, oral pharynx no lesions Neck: no nodes, no JVD, supple, full ROM Respiratory: no wheezing, no rales, no rhonchi, clear to auscultation bilateral Cardiovascular: RRR, no significant murmur, no rub Gastrointestinal: soft, non-tender, no distention, positive bowel sounds Musculoskeletal: no edema, pulses present Neurological: non-focal, normal sensation, moves all 4 limbs Psychiatric: normal affect, A&O x 3 Skin: no rash Dx/Plan (1) Acute systolic CHF, NYHA class 2 and IVY/AHA stage C Code(s): I50.21 - ACUTE SYSTOLIC (CONGESTIVE) HEART FAILURE Status: Acute (2) Acute pulmonary edema Code(s): J81.0 - ACUTE PULMONARY EDEMA Status: Acute Comment: Improving. Continue diuretics. (3) HTN (hypertension) Code(s): I10 - ESSENTIAL (PRIMARY) HYPERTENSION Status: Chronic Comment: Stable, BP controlled (4) Lung cancer Code(s): C34.90 - MALIGNANT NEOPLASM OF UNSP PART OF UNSP BRONCHUS OR LUNG Status: Chronic Comment: currently receiving treatments (5) Acute and chronic respiratory failure with hypoxia Code(s): J96.21 - ACUTE AND CHRONIC RESPIRATORY FAILURE WITH HYPOXIA Status: Resolved (6) Pancytopenia Code(s): D61.818 - OTHER PANCYTOPENIA Status: Acute Comment: likley due to chemoRx (7) Non-ischemic cardiomyopathy Code(s): I42.8 - OTHER CARDIOMYOPATHIES Status: Chronic - Plan out of bed/ambulate, DVT proph w/SCDs Stress test results noted. No plans for cath per Cardiology -: Cont BB,MAKENZIE-I,aldactone,lasix. -: Lifevest to be fitted w OP f/u w ECHO in 3 months -: HD stable.wean off of oxygen -: DC home when Ok w cardiolgy & Lifevest fitted * . Review of Systems - Review of Systems Constitutional: negative: fever, chills, sweats, weakness, malaise, other ENT: negative: Ear Pain, Ear Discharge, Nose Pain, Nose Discharge, Nose Congestion, Mouth Pain, Mouth Swelling, Throat Pain, Throat Swelling, Other Respiratory: negative: Cough, Dry, Shortness of Breath, Hemoptysis, SOB with Excertion, Pleuritic Pain, Sputum, Wheezing Cardiovascular: negative: chest pain, palpitations, orthopnea, paroxysmal nocturnal dyspnea, edema, light headedness, other Gastrointestinal: negative: Nausea, Vomiting, Abdominal Pain, Diarrhea, Constipation, Melena, Hematochezia, Other Genitourinary: negative: Dysuria, Frequency, Incontinence, Hematuria, Retention , Other Musculoskeletal: negative: Neck Pain, Shoulder Pain, Arm Pain, Back Pain, Hand Pain, Leg Pain, Foot Pain, Other Skin: negative: Rash, Lesions, Shankar, Bruising, Other Neurological: negative: Weakness, Numbness, Incoordination, Change in Speech, Confusion, Seizures, Other - Medications/Allergies Allergies/Adverse Reactions: Allergies Allergy/AdvReac Type Severity Reaction Status Date / Time rosuvastatin [From Crestor] Allergy Verified 02/06/18 09:40 Medications: Current Medications Albuterol/Ipratropium (Duoneb) 3 ml EZPAP [id number] NILES Last Admin: 02/09/18 13:57 Dose: 3 ml Bisacodyl (Dulcolax) 10 mg NV Q24H PRN PRN Reason: Constipation Carvedilol (Coreg) 3.125 mg PO BID-[facility] Last Admin: 02/09/18 10:59 Dose: 3.125 mg Guaifenesin (Mucinex) 1,200 mg PO Q12HR [facility] Last Admin: 02/09/18 10:58 Dose: 1,200 mg Iron/Minerals/Multivitamins (Theragran M) 1 tab PO DAILY [facility] Last Admin: 02/09/18 10:59 Dose: 1 tab Lisinopril (Zestril) 2.5 mg PO BID [facility] Last Admin: 02/09/18 11:00 Dose: 2.5 mg Magnesium Oxide (Magnesium Oxide) 200 mg PO BID [facility] Last Admin: 02/09/18 10:59 Dose: 200 mg Potassium Chloride (K-Dur) 40 meq PO Q4H [facility] Stop: 02/09/18 17:46 Last Admin: 02/09/18 14:17 Dose: 40 meq Prednisone (Prednisone) 40 mg PO ONE [facility] Stop: 02/09/18 15:00 Last Admin: 02/09/18 14:17 Dose: 40 mg Prednisone (Prednisone) 40 mg PO QAM-[facility] Spironolactone (Aldactone) 25 mg PO QAM-[facility] Last Admin: 02/09/18 11:00 Dose: 25 mg
--- NOTE | 2018-02-09 17:04 | PRG ---
DATE OF SERVICE: 02/09/2018 SERVICE: Pulmonary Medicine. INTERVAL HISTORY: The patient is doing fantastic from a respiratory standpoint. She denies any curre nt chest pain, nausea, vomiting, fevers, or chills. Otherwise, she is in her usual state of health. She has been weaned down to room air and she has no specific complaints. There were no overnight ev ents. PHYSICAL EXAMINATION: VITAL SIGNS: Afebrile, pulse 95, blood pressure 112/54, respirations 16, and saturation 96% on room air. GENERAL: The patient is awake, alert, in no apparent distress. LUNGS: Excellent air entry. I do not appreciate a prolonged expiratory phase or wheezing. HEART: Normal rate, regular. ABDOMEN: Soft, nontender, nondistended. Bowel sounds are positive. MUSCULOSKELETAL: No cyanosis or clubbing. There is no pitting in the bilateral lower extremities. NEUROLOGIC: Grossly nonfocal. LABORATORY DATA: WBC 1.6, hemoglobin 9.5, platelets 84,000. Creatinine 0.85, potassium 3.4. Urine drug screen is unremarkable. IMAGING: Stress test demonstrates scarred left ventricular apex with global hypokinesis and abnormal low ejection fraction of 27%. No reversible ischemia is identified. ASSESSMENT: 1. Acute hypoxic respiratory failure, resolved. 2. Acute systolic and diastolic heart failure. 3. Pleural effusion on the left, resolving. 4. Atelectasis of the left lower lobe, new onset. 5. Acute bronchitis, resolved. 6. Hypertension. 7. Adenocarcinoma of the lung, stage 4, currently on chemotherapy with 1 drug, and a separate immuno therapy agent (Keytruda). 8. Pancytopenia, new onset since being in the hospital, DISCUSSION AND PLAN: I am going to get rid of all medications that are not absolutely necessary incl uding these antibiotics. We will send an STEPHANIE and B12 tomorrow morning. Potassium will be replaced t twyla Pulmonary Critical Care will continue to follow along.
[2018-02-10 06:12] LABS: #Lymphocytes 0.3 thou/uL (1.20-3.40); #Monocytes 0.2 thou/uL (0.11-0.59); #Neutrophils 1.1 thou/uL (1.40-6.50); %Eosinophils 0.2 % (0.0-10.0); %Monocytes 11.4 % (0.0-10.0); %Neutrophils 68.4 % (42.0-75.0); Hemoglobin 9.7 g/dL (12.0-16.0); Mean Corpuscular HGB CONC 33.4 g/dL (32.0-36.0); Mean Corpuscular Hemoglobin 32.2 pg (27.0-31.0); Mean Corpuscular Volume 96.4 fl (81.0-99.0); Mean Platelet Volume 8.2 fL (7.4-10.4); Platelet Count 83 thou/uL (130-400); RBC Distribution Width 12.1 % (11.5-14.5); Red Blood Cell (RBC) Count 3.01 mill/uL (4.20-5.40); White Blood Cell (WBC) Count 1.6 thou/uL (4.8-10.8)
[2018-02-10 07:25] LABS: Anion Gap 9 mmol/L (10-20); BUN (Urea Nitrogen) 38 mg/dL (9.8-20.1); Calc. Creatinine Clearance 52 mL/min (70-130); Carbon Dioxide 30 mmol/L (23-31); Chloride 103 mmol/L (98-107); Estimated GFR-MDRD 67; Glucose 147 mg/dL (83-110); Potassium 5.4 mmol/L (3.5-5.1); Sodium 137 mmol/L (136-145)
[2018-02-10] MEDS ORDERED: Sodium Chloride 0.9% 10 ML ONE (07:27)
[2018-02-10] MEDS ORDERED: Furosemide 20 MG TAB PO SCH (07:30)
[2018-02-10] MEDS ORDERED: predniSONE 20 MG TAB PO SCH (08:00)
[2018-02-10] MEDS: Carvedilol 3.125 MG TAB PO SCH (08:28)
[2018-02-10] MEDS: Spironolactone 25 MG TAB PO SCH (08:32)
[2018-02-10] MEDS: guaiFENesin ER 600 MG TAB PO SCH (08:33)
[2018-02-10] MEDS: Lisinopril 5 MG TAB PO SCH (08:33)
[2018-02-10] MEDS: Magnesium Oxide 400 MG TAB PO SCH (08:36)
[2018-02-10] MEDS: Multivitamin W/ Minerals 1 TAB PO SCH (08:38)
--- NOTE | 2018-02-10 11:15 | PDOC.CTH ---
Cardiology Progress Note - Subjective The pt seen and examined. No overnight events. No cardiac complaints. She stated she does not have any questions about her discharge plan and LifeVest. - Objective Vital Signs Temp Pulse Resp BP Pulse Ox 02/10/18 08:59 94 L 02/10/18 08:56 84 12 02/10/18 08:33 78 02/10/18 08:29 98.4 F 84 18 135/59 L 98 02/10/18 03:48 97.6 F 78 17 114/57 L 95 02/10/18 02:22 93 L 02/10/18 00:27 74 16 94 L Weight 126 lb 15.78 oz - Physical Examination General/Neuro: alert & oriented x3 Neck: no JVD present Lungs: other: (diminished at bases) Heart: RRR Abdomen: soft Extremities: other: (No edema) - Telemetry Telemetry Rhythm: SR BBB - Labs Result Diagrams: 02/10/18 05:24 02/10/18 05:24 Troponin/CKMB Troponin I 0.089 ng/mL (< 0.028) H 02/07/18 04:17 - Assessment/Plan 1. Acute on chronic systolic HF - Echo on 02/06/18 showed EF 30-35%, grade I diastolic dysfunction, mild MR, mild-mod AR, mild TR, hypokinetic motion of septal, anterolateral wall in the LV. Stable with Lisinopril 2.5mg BID, Coreg 3.125mg BID, and Spironolactone 25mg daily; Stress test showed no ischemia; D/ c home with LifeVest; f/u w ECHO in 3 months as outpt 2. Pulmonary edema - stable; managed by group supervisor yard 3. HTN - stable with current med 4. Lung cancer/Pancytopenia - likley due to chemo Rx; managed by Oncology service MAR reviewed * From Cardiac standpoint, the pt is stable to d/c home with LifeVest. The pt will f/u with Dr Pitts within 2 wks. Review of Systems - Review of Systems Constitutional: reports: no symptoms reported EENTM: reports: no symptoms reported Respiratory: reports: no symptoms reported Cardiac (ROS): reports: no symptoms reported ABD/GI: reports: no symptoms reported : reports: no symptoms reported Musculoskeletal: reports: no symptoms reported Skin: reports: no symptoms reported Neurological: reports: no symptoms reported
[2018-02-10 11:18] VITALS: BP 119/55; TEMP 98.5
--- NOTE | 2018-02-10 14:18 | PDOC.PN ---
- Subjective Encounter Start Date: 02/10/18 Encounter Start Time: 08:45 Subjective: feels better, wants to go home -: does not want nebulizer or inhaler prescriptions - Objective Resuscitation Status: Resuscitation Status FULL:Full Resuscitation MAR Reviewed: Yes Vital Signs & Weight: Vital Signs (12 hours) Temp Pulse Resp BP Pulse Ox 02/10/18 11:15 98.5 F 86 18 119/55 L 96 02/10/18 08:59 94 L 02/10/18 08:56 84 12 02/10/18 08:33 78 02/10/18 08:29 98.5 F 86 18 135/59 L 98 02/10/18 03:48 97.6 F 78 17 114/57 L 95 02/10/18 02:22 93 L Weight Weight 126 lb 15.78 oz Most Recent Monitor Data Heart Rate from ECG 92 NIBP 108/53 NIBP BP-Mean 65 Respiration from ECG 17 SpO2 95 Result Diagrams: 02/10/18 05:24 02/10/18 05:24 Phys Exam - Physical Examination HEENT: PERRLA, moist MMs Neck: no JVD, supple Respiratory: no wheezing, no rales rhonchi+ Cardiovascular: RRR, no significant murmur Gastrointestinal: soft, non-tender, positive bowel sounds Musculoskeletal: no edema, pulses present Neurological: non-focal, moves all 4 limbs Psychiatric: normal affect, A&O x 3 Dx/Plan (1) Acute respiratory failure with hypoxia Code(s): J96.01 - ACUTE RESPIRATORY FAILURE WITH HYPOXIA Status: Acute (2) Acute systolic CHF, NYHA class 2 and IVY/AHA stage C Code(s): I50.21 - ACUTE SYSTOLIC (CONGESTIVE) HEART FAILURE Status: Acute (3) Pancytopenia Code(s): D61.818 - OTHER PANCYTOPENIA Status: Acute Comment: likley due to chemoRx (4) HTN (hypertension) Code(s): I10 - ESSENTIAL (PRIMARY) HYPERTENSION Status: Chronic Qualifiers: Hypertension type: essential hypertension Qualified Code(s): I10 - Essential (primary) hypertension Comment: Stable, BP controlled (5) Lung cancer Code(s): C34.90 - MALIGNANT NEOPLASM OF UNSP PART OF UNSP BRONCHUS OR LUNG Status: Chronic Comment: currently receiving treatments (6) Non-ischemic cardiomyopathy Code(s): I42.8 - OTHER CARDIOMYOPATHIES Status: Chronic - Plan is on coreg, lisinopril, spironolactone -: pt refuses nebs/inhaler prescriptions -: has been cleared by cardio for dc -: life vest has been fitted, dc pt home -: to f/u with onc as adv * .
--- NOTE | 2018-02-10 16:18 | EKG ---
Test Reason : Blood Pressure : / mmHG Vent. Rate : 078 BPM Atrial Rate : 078 BPM P-R Int : 152 ms QRS Dur : 146 ms QT Int : 474 ms P-R-T Axes : 061 002 151 degrees QTc Int : 540 ms Electronic ventricular pacemaker Confirmed by JENY GÓMEZ, YANELI ([id number]), sound editor HARMONY BROWN ([id number]) on 02/10/2018 4:17:41 PM Referred By: JENY Confirmed By:YANELI FERMIN MD
--- NOTE | 2018-02-11 21:42 | DIS ---
DATE OF ADMISSION: 02/06/2018 DATE OF DISCHARGE: 02/10/2018 DISCHARGE DISPOSITION: To home. PRIMARY DISCHARGE DIAGNOSES: 1. Acute respiratory failure with hypoxia, resolved. 2. Acute congestive heart failure exacerbation with systolic and diastolic dysfunction, [employer] [employer] class C. 3. Pancytopenia due to chemotherapy. 4. History of lung cancer, getting treatments at [facility]. 5. Hypertension. 6. Nonischemic cardiomyopathy. PROCEDURES DONE DURING HOSPITALIZATION: Echo with 2D Doppler done showed an EF of 30-35%. There was hypokinesis of the septum, anterolateral wall of left ventricle. Cardiolite stress test done showed scarred left ventricular apex with global hypokinesis and abnormal low ejection fraction of 27%. No reversible ischemia was seen. Chest x-ray done on admission showed pulmonary vascular congestion. H&H 9 and 29, platelet count 83, white count of 1.6, MCV is 96. BUN is 38, creatinine 0.8. CRP 1.6. Vitamin B12 was 1207. Procalcitonin was 0.08 ng/mL. BNP 1029. Urine drug screen was negative. INPATIENT CONSULTS: Dr. Mejia for cardiology and Dr. Buenrostro for pulmonology. DISCHARGE MEDICATIONS: Coreg 3.125 mg p.o. twice daily, lisinopril 2.5 mg p.o. twice daily, multivitamin 1 tab once daily, spironolactone 25 mg p.o. daily, prednisone 5 mg p.o. daily for another 3 days. ALLERGIES: To ROSUVASTATIN. DISCHARGE PLAN: The patient to follow up with primary care physician in 1 week , Dr. Buenrostro in 2 weeks and her primary oncologist in [facility] as before. BRIEF COURSE DURING HOSPITALIZATION: The patient initially went to [facility] with complaints of shortness of breath. She was found to be in flash pulmonary edema and was emergently intubated. She was later transferred here for higher level of care. The patient had severe pulmonary vascular congestion and was aggressively diuresed. She has had consultation with Dr. Mejia for cardiology and Dr. Buenrostro for pulmonology. The patient was successfully extubated. Post-extubation, she was transferred to telemetry. She has been ambulating in the room. She is wanting to go home today. Her echo revealed EF of 30-35%. A nuclear stress test done showed an EF of 27% with no reversible ischemia. She was suspected to have nonischemic cardiomyopathy. She needs to follow up with Dr. Mejia for further workup if needed. She also needs to follow up with Jade Leigh, her oncologist as before. She was fitted with a LifeVest and likely the patient will be discharged once cleared by Cardiology. Please see face to face documentation on [facility] for the day of discharge. LETTY
[2018-02-12 12:01] LABS: ANA Symphony (Qualitative) Negative (Negative)
== END 2018-02-10 13:32 | disposition home or self-care (01) | DRG 208 ==
LOC: ERS 01:58 → CCU 03:56 → 2NO 02-07 14:37
PROVIDERS: ADMIT Internal Medicine; ATTEND Internal Medicine
PROC: 5A1935Z Respiratory Ventilation, Less than 24 Consecutive Hours (ICD-10-PCS; principal; 2018-02-06)
PROC: 0BH17EZ Insertion of Endotracheal Airway into Trachea, Via Natural or Artificial Opening (ICD-10-PCS; 2018-02-06)
DX: J96.01 Acute respiratory failure with hypoxia (principal); I50.41 Acute combined systolic (congestive) and diastolic (congestive) heart failure; C34.90 Malignant neoplasm of unspecified part of unspecified bronchus or lung; D61.818 Other pancytopenia; I42.8 Other cardiomyopathies; I11.0 Hypertensive heart disease with heart failure; Z79.899 Other long term (current) drug therapy; Z88.8 Allergy status to other drugs, medicaments and biological substances; E78.5 Hyperlipidemia, unspecified; J20.9 Acute bronchitis, unspecified; Z92.21 Personal history of antineoplastic chemotherapy; D69.6 Thrombocytopenia, unspecified
CPT/HCPCS: 36415; 36556; 51702; 71045; 71046; 78452; 80048; 80053; 80306; 81003; 82607; 82805; 83605; 83880; 84145; 84484; 85025; 85652; 86038; 86140; 86225; 93005; 93017; 93306; 93798; 94002; 94640; 96360; 96374; A4216; A9500; A9537; G8978-GP-CI; G8979-GP-CI; G8980-GP-CI; J1650; J2785; J3010; J7050; J7506; J7620; S0028